=== PATIENT | female | born 1955 | race Caucasian/White ===

== ENCOUNTER → 2016-11-13 | Outpatient (CLI) | payer OTHER, BC | LOC: MC.RAD 15:00 | DX: Z12.31 Encounter for screening mammogram for malignant neoplasm of breast (principal); Z80.3 Family history of malignant neoplasm of breast ==

== ENCOUNTER → 2017-03-26 | Outpatient (REF) | LOC: WSOH 10:15 | DX: Z02.89 Encounter for other administrative examinations (principal) ==

== ENCOUNTER → 2017-05-10 | Outpatient (REF) | END | disposition still patient (30) | LOC: WSOH 19:00 | DX: Z02.89 Encounter for other administrative examinations (principal) ==

== ENCOUNTER → 2017-10-01 | Outpatient (CLI) | payer BC | LOC: COL.VAS 12:29 | DX: I82.542 Chronic embolism and thrombosis of left tibial vein (principal) ==

== ENCOUNTER → 2017-11-22 | Outpatient (CLI) | payer BC | LOC: MC.RAD 14:38 | DX: Z12.31 Encounter for screening mammogram for malignant neoplasm of breast (principal) ==

== ENCOUNTER → 2018-12-12 | Outpatient (CLI) | payer BC | LOC: MC.RAD 14:36 | DX: Z12.31 Encounter for screening mammogram for malignant neoplasm of breast (principal) ==

== ENCOUNTER → 2020-01-23 | Outpatient (CLI) | payer BC | LOC: MC.RAD 12-15 14:30 | DX: Z12.31 Encounter for screening mammogram for malignant neoplasm of breast (principal) ==

== ENCOUNTER → 2020-07-18 | Emergency (ER) | payer SELFPAY ==
[~2020-07-18] VITALS: Ht 165.1 cm; Wt 81.8 kg
[2020-07-18 07:46] VITALS: TEMP 98.4
[2020-07-18 08:29] LABS: HIV 1/2 Antibodies Non-Reactive; HIV-1p24 Antigen Non-Reactive
[2020-07-18 08:33] VITALS: BP 123/81; PULSE 51
[2020-07-18 13:14] LABS: HEPATITIS B SURFACE ANTIBODY 620.4 (()); HEPATITIS B SURFACE ANTIGEN Negative (Negative); HEPATITIS C VIRUS ANTIBODY Negative (Negative)
== END ==
LOC: COL.ER 07:27 → EDSTATUS 10:39
PROVIDERS: Emergency Medicine
DX: S69.91XA Unspecified injury of right wrist, hand and finger(s), initial encounter (principal); W27.3XXA Contact with needle (sewing), initial encounter; Y92.59 Other trade areas as the place of occurrence of the external cause; Y99.0 Civilian activity done for income or pay

== ENCOUNTER → 2021-01-31 | Outpatient (CLI) | payer MEDICARE | LOC: MC.RAD 09:40 | DX: Z12.31 Encounter for screening mammogram for malignant neoplasm of breast (principal) ==

== ENCOUNTER → 2022-02-01 | Outpatient (CLI) | payer MEDICARE | LOC: MC.RAD 12:53 | DX: Z12.31 Encounter for screening mammogram for malignant neoplasm of breast (principal) ==

== ENCOUNTER → 2024-03-18 | Outpatient (CLI) | payer MEDICARE, OTHER ==
[~2024-03-18] MED LIST: ADVIL200 MG PO; COZAAR 25MG25 MG/TAB PO; IMITREX50 MG PO; MULTI VITAMINS1 TAB PO; OMEGA-3 1000 MG1 CAP PO; SINGULAIR 110 MG/TAB PO; SYNTHROID0.075 MG/T
== END ==
LOC: MC.RAD 03-03 10:30
DX: Z12.31 Encounter for screening mammogram for malignant neoplasm of breast (principal)

== ENCOUNTER 2024-05-07 07:56 | Day surgery (SDC) | payer MEDICARE, OTHER ==
[2024-05-07] VITALS (11 sets, daily range): BP systolic 120–151; BP diastolic 62–86; PULSE 57–65; TEMP 97.5–98.2
[~2024-05-07] VITALS: Ht 165.1 cm; Wt 88.6 kg
[~2024-05-07 07:56] MED LIST changes: -SYNTHROID0.075 MG/T; +SYNTHROID0.075 MG/T PO
[2024-05-07] MEDS ORDERED: 1/2 NS 1,000 ML IV SCH (08:15)
[2024-05-07] MEDS ORDERED: ceFAZolin 2 G in Water For Injection,Sterile 20 ML IV SCH (08:15)
[2024-05-07 08:48] LABS: HEMOGLOBIN 11.1 g/dl (12.5-16.0); MEAN CELL VOLUME 85 fl (80.0-100.0); MEAN CORPUSCULAR HEMOGLOBIN 28 pg (27-31); MEAN CORPUSCULAR HGB CONC 33 g/dl (33.0-37.0); MEAN PLATELET VOLUME 10.3 fl (7.4-10.4); PLATELET COUNT 269 K/mm3 (130-400); RED BLOOD COUNT 4.02 M/mm3 (4.10-5.30); REDCELL DISTRIBUTION WIDTH-CV 15.4 % (11.5-14.5)
[2024-05-07 08:50] LABS: HEMATOCRIT 34.2 % (37.0-47.0)
--- NOTE | 2024-05-07 09:01 | NUR ---
Confirmed with Christine,Pharmacist Uzair ok to give for procedure d/t adverse rxn to augmentin in past.
[2024-05-07 09:04] LABS: CALCIUM 9.2 mg/dL (8.4-10.2); CREATININE, serum 0.87 mg/dL (0.57-1.11)
[2024-05-07 09:06] LABS: PROTHROMBIN TIME 10.9 SECONDS (9.7-12.8)
[2024-05-07] MEDS ORDERED: PROAIR HFA0.09 MG/AC IH (09:09)
[2024-05-07] MEDS ORDERED: FIORINAL 325 MG1 CAP PO (09:12)
[2024-05-07] MEDS ORDERED: NS 1,000 ML IV.SOLN. IR SCH (11:14)
[2024-05-07] MEDS ORDERED: fentaNYL 50 MCG/ML 2 ML VIAL IV SCH (11:39)
[2024-05-07] MEDS ORDERED: Midazolam 2 MG/2 ML VIAL IV SCH (11:40)
[2024-05-07] MEDS ORDERED: Topical Skin Adhesive 1 EACH (1 ML) TOP ONE (11:51)
--- NOTE | 2024-05-07 12:01 | NUR ---
REPORT RECIEVED FROM NEPTALI KAHN.
[2024-05-07] MEDS ORDERED: Bisacodyl 5 MG TAB PO PRN (12:15)
--- NOTE | 2024-05-07 12:23 | NUR ---
PT TRASNFERRED TO ROOM 353 BY BED. BEDSIDE HAND OFF COMPLETED AT THIS TIME. VSS- SEE FLOWSHEET.
--- NOTE | 2024-05-07 12:24 | NUR ---
"Pt to Medical floor- bedside handoff performed with nurse|: vitals initiated and stable, incision site dressing stable, call light in reach, family at bedside"
[2024-05-07] MEDS ORDERED: Acetamin/Butalbital/Caffeine 325-50-40 MG TAB PO PRN (12:30)
[2024-05-07] MEDS ORDERED: Ondansetron 4 MG/2 ML VIAL IV PRN (12:30)
[2024-05-07] MEDS ORDERED: Acetaminophen 500 MG TAB PO PRN (12:30)
[2024-05-07] MEDS ORDERED: Magnes Hydrox (MOM) 80 MG/ML 30 ML CUP PO PRN (12:30)
[2024-05-07] MEDS ORDERED: Albuterol 0.083% Neb Soln 2.5 MG/3 ML UD IH PRN (12:30)
[2024-05-07] MEDS ORDERED: SUMAtriptan 25 MG TAB PO PRN (12:30)
--- NOTE | 2024-05-07 12:30 | NUR ---
SHIFT ASSESSMENT COMPLETED AT THIS TIME. PT A&OX4. PT REPORTS 3/10 PAIN LOCATED IN HER BILATERAL SHOULDERS. PRN TYELNOL ADMINISTERED AT THIS TIME. DRESSING TO RIGHT UPPER CHEST, CLEAN DRY AND INTACT. NO HEMATOMA OR SWELLING NOTED. SLING NOTED TO LEFT ARM. ICE APPLIED TO PACER SITE. ADMISSION INTAKE COMPLETED AT THIS TIME. MED REC COMPLETED AT THIS TIME. ASSISTED PT TO ORDER LUNCH. CALL LIGHT WITHIN REACH. NO FURTHER NEEDS AT THIS TIME.
--- NOTE | 2024-05-07 14:35 | NUR ---
PT REPORTING 5/10 PAIN LOCATED IN THE BACK ACROSS THE SHOULDER BLADES AND IN THE CHEST LOCATED NEAR THE STERNUM. PT REPORTS THIS PAIN CAME ON SUDDENLY. SHE REPORTS THE PAIN IS INTERMITTENT AND SOB ACCOMPAINES THIS PAIN. THIS NURSE PAGED DR. ARTEAGA'S NURSE NEPTALI THAO. NEW ORDERS RECIEVED FOR A STAT CHEST XRAY. RADIOLOGY AT BEDSIDE, KEESHA NOTIFIED. NO FURTHER NEEDS AT THIS TIME.
[2024-05-07] MEDS ORDERED: traMADol 50 MG TAB PO PRN (15:00)
--- NOTE | 2024-05-07 15:53 | NUR ---
PT REASESSED AT THIS TIME. PT REPORTING 2/10 PAIN AFTER PRN ULTRAM ADMINISTERED. WARM BLANKETS APPLIED. NEPTALI THAO NOTFIED. NO FURTHER NEEDS AT THIS TIME.
--- NOTE | 2024-05-07 18:54 | NUR ---
PATIENT SITTING UP IN BED PLAYING CARDS WITH WITH TV ON WITH NO ACUTE DISTRESS NOTED. PATIENT ON ROOM AIR. TELEMETRY INTACT. INT TO LEFT FOREARM INTACT WITH NO COMPLICATIONS NOTED. BEDSIDE SHIFT REPORT COMPLETED WITH JONY AT THIS TIME. PATIENT DENIES AND NEEDS. BED IN LOW POSITION WITH WHEELS LOCKED WITH RAILS UP X2 AND CALL LIGHT WITHIN REACH.
--- NOTE | 2024-05-07 18:59 | NUR ---
Agree with CALVIN Tiwari intake and assessment. Pt pain to shoulder/back/sternum unresolved with Tylenol. Pt reported relief with Ultram. Sling on LUE. Ice to pacer site in place. Dressing CDI.
--- NOTE | 2024-05-07 20:53 | NUR ---
PATIENT RESTING IN BED WATCHING TV WITH NO FAMILY PRESENT WITH NO ACUTE DISTRESS NOTED. PATIENT ON ROOM AIR. TELEMETRY INTACT. SLING TO LEFT ARM ON. ICE PACK TO LEFT UPPER CHEST ON. INT TO LEFT FOREARM INTACT WITH NO COMPLICATIONS NOTED. ASSESSMENT AND MEDICATION ADMINISTRATION COMPLETED AT THIS TIME. PATIENT TOLERATED WELL. PATIENT C/O BACK PAIN WITH PAIN LEVLE OF 4 ON SCALE OF 0 TO 10. PO ULTRAM GIVEN PER MD ORDER. PATIENT REQUEST MORE FOR HER WATER AND WAS GIVEN. ALL NEEDS MET. BED IN LOW POSITION WITH WHEELS LOCKED WITH RAILS UP X2 AND CALL LIGHT WITHIN REACH.
[2024-05-07] MEDS ORDERED: Melatonin 3 MG TAB PO PRN (21:00)
[2024-05-08] VITALS (7 sets, daily range): BP systolic 106–131; BP diastolic 69–86; PULSE 59–61; TEMP 97.4–98.1
[2024-05-08 06:53] LABS: BASO % 0.3 % (0.0-2.0); EOS # 0.4 K/mm3 (0.0-0.7); EOS % 6.2 % (0.0-4.0); GRAN # 3.9 K/mm3 (1.4-6.5); GRAN % 64.8 % (42.2-75.2); LYMPH # 1.2 K/mm3 (1.2-3.4); LYMPH % 20.8 % (20.0-51.0); MEAN CELL VOLUME 85 fl (80.0-100.0); MEAN CORPUSCULAR HEMOGLOBIN 28 pg (27-31); MEAN CORPUSCULAR HGB CONC 33 g/dl (33.0-37.0); MEAN PLATELET VOLUME 11.2 fl (7.4-10.4); MONO # 0.5 K/mm3 (0.1-0.6); MONO % 7.7 % (1.7-9.3); PLATELET COUNT 218 K/mm3 (130-400); RED BLOOD COUNT 3.96 M/mm3 (4.10-5.30); REDCELL DISTRIBUTION WIDTH-CV 15.7 % (11.5-14.5)
[2024-05-08 07:04] LABS: HEMATOCRIT 33.7 % (37.0-47.0)
[2024-05-08 07:15] LABS: CALCIUM 9.7 mg/dL (8.4-10.2); CREATININE, serum 0.95 mg/dL (0.57-1.11); POTASSIUM 4.5 mEq/L (3.5-4.5)
--- NOTE | 2024-05-08 08:52 | NUR ---
Patient resting in bed, watching TV. Alert and oriented x 4, VSS. States just some light pain in site. She has some nausea and asked for zofran, provided. She ate a couple of crackers but no more. Assessment completed, meds given with some sips of water. No further needs at this time. Call light within reach.
[2024-05-08] MEDS ORDERED: Montelukast 10 MG TAB PO SCH (09:00)
[2024-05-08] MEDS ORDERED: Losartan 50 MG TAB PO SCH (09:00)
[2024-05-08] MEDS ORDERED: Celecoxib 200 MG CAP PO SCH (11:00)
[2024-05-08] MEDS ORDERED: CELEBREX 200MG200 MG PO (12:41)
[2024-05-08] MEDS ORDERED: CLEOCIN HCL300 MG PO (12:41)
--- NOTE | 2024-05-08 13:30 | NUR ---
Patient was provided with discharge information, all questions answered. IV access and telemetry were discontinued.
[2024-05-08] MEDS ORDERED: Clindamycin 150 MG CAP PO SCH (14:00)
== END 2024-05-08 14:00 | disposition home or self-care (01) ==
LOC: COL.CAR 07:56 → MEDICAL 12:29 → COL.CAR 05-08 14:00
PROVIDERS: Internal Medicine Cardiovascular Disease
DX: R00.1 Bradycardia, unspecified (principal); R53.83 Other fatigue
CPT/HCPCS: OP; C1769; C1785; C1894; C1898; J0665-JZ; J0688; J0690; J0737; J2250; J2405; J3010; J7030

== ENCOUNTER 2024-05-15 13:40 | Emergency (ER) | payer MEDICARE, OTHER ==
[~2024-05-15] VITALS: Ht 165.1 cm; Wt 86.4 kg
[~2024-05-15 13:40] MED LIST changes: +CELEBREX 200MG200 MG PO; +CLEOCIN HCL300 MG PO; +FIORINAL 325 MG1 CAP PO; +PROAIR HFA0.09 MG/AC IH
[2024-05-15 13:44] VITALS: TEMP 97.5
[2024-05-15 14:10] LABS: BASO % 0.4 % (0.0-2.0); EOS # 0.2 K/mm3 (0.0-0.7); GRAN # 5.2 K/mm3 (1.4-6.5); GRAN % 61.7 % (42.2-75.2); HEMOGLOBIN 11.6 g/dl (12.5-16.0); LYMPH # 2.5 K/mm3 (1.2-3.4); MEAN CELL VOLUME 87 fl (80.0-100.0); MEAN CORPUSCULAR HEMOGLOBIN 27 pg (27-31); MEAN CORPUSCULAR HGB CONC 32 g/dl (33.0-37.0); MEAN PLATELET VOLUME 10.1 fl (7.4-10.4); MONO # 0.6 K/mm3 (0.1-0.6); MONO % 6.5 % (1.7-9.3); PLATELET COUNT 318 K/mm3 (130-400); RED BLOOD COUNT 4.24 M/mm3 (4.10-5.30); REDCELL DISTRIBUTION WIDTH-CV 15.3 % (11.5-14.5)
[2024-05-15 14:11] LABS: HEMATOCRIT 36.7 % (37.0-47.0)
[2024-05-15] MEDS ORDERED: Ondansetron 4 MG/2 ML VIAL IV ONE (14:15)
[2024-05-15] MEDS ORDERED: NS 1,000 ML IV ONE (14:15)
[2024-05-15 14:23] LABS: ALBUMIN 4.2 g/dL (3.4-4.8); BILIRUBIN,TOTAL 0.5 mg/dL (0.2-1.2); CREATININE, serum 1.07 mg/dL (0.57-1.11); POTASSIUM 4.2 mEq/L (3.5-4.5); TOTAL PROTEIN 7.6 g/dl (6.2-8.1)
[2024-05-15] MEDS ORDERED: Iohexol 300 - 100 ML VIAL IV ONE (14:46)
[2024-05-15] MEDS ORDERED: NS 100 ML IV SCH (14:48)
[2024-05-15] MEDS ORDERED: ULTRAM 50MG TAB50 MG PO (15:56)
[2024-05-15] MEDS ORDERED: traMADol 50 MG TAB PO ONE (16:00)
[2024-05-15 16:10] VITALS: BP 137/70; PULSE 62
[2024-05-15] MEDS ORDERED: ZOFRAN ODT4 MG PO (16:12)
== END 2024-05-15 16:19 | disposition home or self-care (01) ==
LOC: COL.ER 13:40
PROVIDERS: Physician Assistant
DX: R07.9 Chest pain, unspecified (principal); R11.2 Nausea with vomiting, unspecified; Z95.0 Presence of cardiac pacemaker
CPT/HCPCS: J2405; J7030; Q9967

== ENCOUNTER 2024-05-22 08:59 | Inpatient (IN) | payer MEDICARE, OTHER ==
[~2024-05-22] VITALS: Ht 165.1 cm; Wt 85.0 kg
[2024-05-22] VITALS (12 sets, daily range): BP systolic 108–145; BP diastolic 64–87; PULSE 59–71; TEMP 97.6–98.2
[~2024-05-22 08:59] MED LIST changes: +1/2 NS 1,000 ML IV SCH; +ULTRAM 50MG TAB50 MG PO; +ZOFRAN ODT4 MG PO; +ceFAZolin 2 G in Water For Injection,Sterile 20 ML IV SCH
[2024-05-22] MEDS ORDERED: ASPIRIN 81M81 MG/TA2 PO (09:48)
[2024-05-22 10:45] LABS: MEAN CELL VOLUME 85 fl (80.0-100.0); MEAN CORPUSCULAR HEMOGLOBIN 27 pg (27-31); MEAN CORPUSCULAR HGB CONC 32 g/dl (33.0-37.0); MEAN PLATELET VOLUME 9.7 fl (7.4-10.4); PLATELET COUNT 393 K/mm3 (130-400); RED BLOOD COUNT 4.09 M/mm3 (4.10-5.30); REDCELL DISTRIBUTION WIDTH-CV 14.9 % (11.5-14.5)
[2024-05-22 10:46] LABS: HEMATOCRIT 34.8 % (37.0-47.0)
[2024-05-22 10:58] LABS: CALCIUM 9.6 mg/dL (8.4-10.2); CREATININE, serum 0.97 mg/dL (0.57-1.11); POTASSIUM 4.8 mEq/L (3.5-4.5)
[2024-05-22 11:01] LABS: INR 1.1 (0.8-3.0); PROTHROMBIN TIME 12.3 SECONDS (9.7-12.8)
[2024-05-22] MEDS ORDERED: NS 1,000 ML IV.SOLN. IR SCH (12:19)
[2024-05-22] MEDS ORDERED: Midazolam 2 MG/2 ML VIAL IV SCH (12:42)
[2024-05-22] MEDS ORDERED: fentaNYL 50 MCG/ML 2 ML VIAL IV SCH (12:43)
[2024-05-22] MEDS ORDERED: Topical Skin Adhesive 1 EACH (1 ML) TOP ONE (12:43)
--- NOTE | 2024-05-22 13:20 | NUR ---
Kacey is transferred to medical pending sale to [facility] after pacemaker lead revision with DR. Justin. Kacey is awake alert, pale, warm and dry, with reg and unlabored respirations upon arrival to pending sale to [facility]. Dressing to PPM site clean dry and intact. BS report and handoff of care to Dionne GUNDERSON.
--- NOTE | 2024-05-22 13:21 | NUR ---
Pt arrived to medical floor from cathlab by bed. Bedside report received from NEPTALI Newberry from equipment operator/laborer/supervisor. Admission assessment and intake completed. Post op vital signs stable. Lt upper chest incision site, CDI. Sling in place on Lt upper extremity. Covered with tape and gauze. Pt denies pain at this time rating 0/10. Oriented pt to room, call light, and bathroom. Pt has no request at this time. Call light within reach.
[2024-05-22] MEDS ORDERED: Albuterol 0.083% Neb Soln 2.5 MG/3 ML UD IH PRN (13:30)
[2024-05-22] MEDS ORDERED: traMADol 50 MG TAB PO SCH (13:30)
[2024-05-22] MEDS ORDERED: SUMAtriptan 25 MG TAB PO PRN (13:30)
[2024-05-22] MEDS ORDERED: ceFAZolin 2 G in Water For Injection,Sterile 20 ML IV SCH (20:30)
--- NOTE | 2024-05-22 20:35 | NUR ---
Patient resting in bed with left arm in sling. Rates pain at 3/10 at this time, prn pain med given. Needs met. Assessment complete. IV in left forearm flushes easily with some slight burning. Patient states the tape is irritating her under the arm and requests foam tape at this time. Replaced paper tape with foam tape, original gauze still in place. Call light and personal items in reach. Bed in low position.
[2024-05-23] VITALS (11 sets, daily range): BP systolic 107–146; BP diastolic 66–82; PULSE 59–97; TEMP 97.4–98.7
--- NOTE | 2024-05-23 00:20 | NUR ---
Recieved phone call from Tele stating that patients heart rate had bounced up to 180s and is currently sustaining in the 130s. Rhythm reading A-fib.
--- NOTE | 2024-05-23 00:43 | NUR ---
Paged Dr. Justin at this time.
--- NOTE | 2024-05-23 00:46 | NUR ---
Recieved phone call from Dr. Justin and notified him that Tele called stating patients heart rate had gone up to 180s and was sustaining in the 130s for a while. Patient is currently bouncing between 80s and low 100s with the rhythm reading A-fib. Recieved new orders to keep paient NPO until morning.
--- NOTE | 2024-05-23 03:02 | NUR ---
Recieved call from Tele stating patient has gotten back up into 180s/190s. Upon entering room patient is up to bathroom again. Patient states she did get a little dizzy and slightly short of breath this time. Denies any other symptoms.
--- NOTE | 2024-05-23 03:21 | NUR ---
Dr. Justin paged at this time.
--- NOTE | 2024-05-23 06:30 | NUR ---
Recieved call from Tele stating that patient is not A-paced on tele. Patient has been flipping back and fourth between a-fib and a-flutter all night.
--- NOTE | 2024-05-23 07:48 | NUR ---
Update reported to NEPTALI Bro
--- NOTE | 2024-05-23 08:00 | NUR ---
Patient sitting up in bed, A&Ox4. VSS. LF arm incision CDI, sling on. A&Ox4. Denies pain and discomfort. ICe on site. Call light within reach
[2024-05-23] MEDS ORDERED: Losartan 50 MG TAB PO SCH (09:00)
[2024-05-23] MEDS ORDERED: Montelukast 10 MG TAB PO SCH (09:00)
--- NOTE | 2024-05-23 09:10 | NUR ---
IV AMIO BOLUS STARTED. PATIENT TOLERATING WELL. VS MONITORED. CALL LIGHT WITHIN REACH
--- NOTE | 2024-05-23 10:24 | NUR ---
D: Bag Washer stopped by room on rounds. A: Pt was resting and content. Pt has no needs right now and is getting discharged. P: Bag Washer informed pt that if she needed anything to let her nurse know. Bag Washer will follow up as needed.
[2024-05-23] MEDS ORDERED: COUMADIN 5MG5 MG/TAB PO (11:05)
[2024-05-23] MEDS ORDERED: MULTAQ400 MG PO (11:05)
[2024-05-23] MEDS ORDERED: Apixaban 5 MG TABLET PO SCH (11:30)
[2024-05-23] MEDS ORDERED: traMADol 50 MG TAB PO PRN (14:45)
--- NOTE | 2024-05-23 15:41 | NUR ---
Bulb Packer met with patient to discuss discharge planning. Patient lives in [place] with her , Balaji (ph#[phone]) and sees Dr. Lund for primary care. Patient gets medications from [facility] and does not use any DME. 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 Patient stated she has DPOA-HC completed designating her . Discharge Plan: Home
[2024-05-24] VITALS (13 sets, daily range): BP systolic 104–117; BP diastolic 65–74; PULSE 59–64; TEMP 97.3–98.2
[2024-05-24 06:49] LABS: BASO % 0.5 % (0.0-2.0); EOS # 0.4 K/mm3 (0.0-0.7); EOS % 5.6 % (0.0-4.0); GRAN % 61.6 % (42.2-75.2); HEMOGLOBIN 11.1 g/dl (12.5-16.0); LYMPH # 1.6 K/mm3 (1.2-3.4); LYMPH % 24.5 % (20.0-51.0); MEAN CELL VOLUME 85 fl (80.0-100.0); MEAN CORPUSCULAR HEMOGLOBIN 27 pg (27-31); MEAN CORPUSCULAR HGB CONC 32 g/dl (33.0-37.0); MEAN PLATELET VOLUME 9.9 fl (7.4-10.4); MONO # 0.5 K/mm3 (0.1-0.6); MONO % 7.5 % (1.7-9.3); PLATELET COUNT 377 K/mm3 (130-400); RED BLOOD COUNT 4.13 M/mm3 (4.10-5.30); REDCELL DISTRIBUTION WIDTH-CV 14.7 % (11.5-14.5)
--- NOTE | 2024-05-24 06:55 | NUR ---
PT RESTING IN BED. PT IS PACED ON TELE. PT IS ON RA. PT IS AXO4. PT HAS CALL LIGHT AND INSTRUCTED TO CALL WITH ALL NEEDS.
[2024-05-24 07:03] LABS: HEMATOCRIT 35.1 % (37.0-47.0)
[2024-05-24 07:10] LABS: CALCIUM 9.4 mg/dL (8.4-10.2); CREATININE, serum 0.97 mg/dL (0.57-1.11); MAGNESIUM 2.1 mg/dL (1.6-2.6); POTASSIUM 4.5 mEq/L (3.5-4.5)
--- NOTE | 2024-05-24 14:23 | NUR ---
Data: Patient politely declined spiritual care visit offered during Life Underwriter rounds. Assessment: None at this time. Patient declined. Plan of Care: Chaplains will remain available as needed/requested while Patient is admitted to this hospital.
[2024-05-25 00:10] VITALS: BP_SYST 104
[2024-05-25 03:14] VITALS: BP 108/71; PULSE 61; TEMP 99.1
[2024-05-25 04:10] VITALS: BP_SYST 108
--- NOTE | 2024-05-25 06:40 | NUR ---
PT SITTING UP IN THE CHAIR. PT IS ON RA. PT IS PACED ON TELE. PT IS AXOX4. PT DENIES CP, SOB, OR DIZZINESS. PT HAS CALL LIGHT AND INSTRUCTED TO CALL WITH ALL NEEDS.
[2024-05-25 06:42] LABS: BASO % 0.4 % (0.0-2.0); EOS # 0.3 K/mm3 (0.0-0.7); EOS % 4.3 % (0.0-4.0); GRAN # 4.3 K/mm3 (1.4-6.5); GRAN % 63.2 % (42.2-75.2); HEMOGLOBIN 10.7 g/dl (12.5-16.0); LYMPH # 1.7 K/mm3 (1.2-3.4); LYMPH % 24.9 % (20.0-51.0); MEAN CELL VOLUME 84 fl (80.0-100.0); MEAN CORPUSCULAR HEMOGLOBIN 27 pg (27-31); MEAN CORPUSCULAR HGB CONC 32 g/dl (33.0-37.0); MEAN PLATELET VOLUME 9.8 fl (7.4-10.4); MONO # 0.5 K/mm3 (0.1-0.6); MONO % 7.1 % (1.7-9.3); PLATELET COUNT 360 K/mm3 (130-400); RED BLOOD COUNT 3.91 M/mm3 (4.10-5.30); REDCELL DISTRIBUTION WIDTH-CV 14.6 % (11.5-14.5)
[2024-05-25 07:01] LABS: CALCIUM 9.1 mg/dL (8.4-10.2); CREATININE, serum 0.94 mg/dL (0.57-1.11); MAGNESIUM 2.1 mg/dL (1.6-2.6); POTASSIUM 4.3 mEq/L (3.5-4.5)
[2024-05-25 07:20] VITALS: BP 115/70; PULSE 62; TEMP 97.7
[2024-05-25 08:50] VITALS: BP_SYST 115
[2024-05-25] MEDS ORDERED: ZOFRAN ODT4 MG PO (10:35)
[2024-05-25] MEDS ORDERED: BETAPACE 80MG80 MG PO (10:35)
[2024-05-25] MEDS ORDERED: ELIQUIS 5MG PO (10:35)
--- NOTE | 2024-05-25 11:08 | NUR ---
1045-CLARIFIED WITH REGARDING ELIQUIS AND COUMADIN ORDERS UPON DC. WILL ONLY SEND PT HOME ON ELIQUIS NOT COUMADIN. 1055-IV AND TELE DC'D. DISCHARGE INSTRUCTIONS DISCUSSED WITH PT. CLARIFIED NEW MEDICAITONS WITH PT. ALL QUESTIONS ANSWERED. PT REFUSED TO BE WHEELD OUT FOR DISCHARGE. PT AMBULATED OUT TO ER ENTERENCE WITH .
== END 2024-05-25 11:10 | disposition home or self-care (01) | DRG 262 ==
LOC: COL.CAR 08:59 → MEDICAL 13:33 → COL.CAR 05-23 12:41 → MEDICAL 05-23 12:42
PROVIDERS: ADMIT Internal Medicine Cardiovascular Disease
PROC: 02PA0MZ Removal of Cardiac Lead from Heart, Open Approach (ICD-10-PCS; principal; 2024-05-22)
PROC: 02H60JZ Insertion of Pacemaker Lead into Right Atrium, Open Approach (ICD-10-PCS; 2024-05-22)
PROC: 02HK0JZ Insertion of Pacemaker Lead into Right Ventricle, Open Approach (ICD-10-PCS; 2024-05-22)
DX: Z45.018 Encounter for adjustment and management of other part of cardiac pacemaker (principal); I48.91 Unspecified atrial fibrillation; Z79.890 Hormone replacement therapy; Z88.1 Allergy status to other antibiotic agents; Z88.5 Allergy status to narcotic agent; Z88.8 Allergy status to other drugs, medicaments and biological substances; Z79.82 Long term (current) use of aspirin; Z79.899 Other long term (current) drug therapy
CPT/HCPCS: OP; J0282; J0665-JZ; J0688; J0690; J2250; J3010; J7030; J7060